=== PATIENT | male | born 1955 | race Caucasian/White ===

== ENCOUNTER 2017-03-22 19:32 | Emergency (ER) | payer BC ==
[~2017-03-22] VITALS: Ht 172.7 cm; Wt 81.6 kg
[2017-03-22] MEDS ORDERED: Tetanus/Diptheria/Pertussis Vaccine 0.5ml Syr IM ONE (20:30)
[2017-03-22] MEDS ORDERED: Lidocaine 1% 10mg/ml/Epi 0.005mg/ml 30ml vial INJ ONE (20:30)
[2017-03-22 21:32] VITALS: BP 149/99
[2017-03-22 21:33] VITALS: BP 149/99
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
== END 2017-03-22 21:34 | disposition home or self-care (01) ==
LOC: EMR 20:18
DX: S01.81XA Laceration without foreign body of other part of head, initial encounter (principal); Y04.2XXA Assault by strike against or bumped into by another person, initial encounter; Y92.89 Other specified places as the place of occurrence of the external cause
CPT/HCPCS: 90471; 90715; 99284